=== PATIENT | male | born 1965 | race Caucasian/White ===

== ENCOUNTER 2023-02-26 22:17 | Emergency (ER) | payer OTHER ==
[2023-02-26] MEDS ORDERED: HYDROcodone/ACETAMINOPHEN 5 MG/325 MG TABLET PO ONE (22:30)
[2023-02-26] MEDS ORDERED: LIDOCAINE 1% INJ 20 ML VIAL ONE (22:32)
[2023-02-26] MEDS ORDERED: LIDOCAINE 1% INJ 20 ML VIAL INJ ONE (22:45)
--- NOTE | 2023-02-26 22:50 | ED Lower Extremity ---
General Chief Complaint: Lower Extremity Stated Complaint: R ANKLE/FOOT PAIN Nursing Triage Note: Pt slipped while stepping off of a boat and injured his right foot Source: patient Exam Limitations: no limitations History of Present Illness Date Seen by Provider: Feb 26, 2023 Time Seen by Provider: 22:23 Initial Comments 57-year-old male presents for right foot injury. He stepped off a boat onto a dock and hurt his toes. No other injury. All other systems reviewed and negative except documented per HPI. Voice recognition software was used to help create this chart Allergies and Home Medications Allergies Coded Allergies: No Known Drug Allergies (Unverified , 02/26/23) Patient Home Medication List Home Medication List Reviewed: Yes Review of Systems Constitutional: see HPI Past Xrqfgmj-Mkwise-Caryqk Hx Patient Social History Tobacco Use?: No Use of E-Cig and/or Vaping dev: No Substance use?: No Alcohol Use?: No Pt feels they are or have been: No Physical Exam Vital Signs Vital Signs - First Documented 02/26/23 22:22 Temp 36.6 Pulse 95 Resp 16 B/P (MAP) 139/88 (105) Pulse Ox 95 O2 Delivery Room Air Capillary Refill : Less Than 3 Seconds Height, Weight, BMI Height: '" Weight: lbs. oz. kg; BMI Method: General Appearance: WD/WN, no apparent distress Hips: bilateral hip non-tender, bilateral hip normal inspection, bilateral hip normal range of motion Legs: bilateral leg non-tender, bilateral leg normal inspection, bilateral leg normal range of motion Knees: bilateral knee non-tender, bilateral knee normal inspection, bilateral knee normal range of motion Ankles: bilateral ankle non-tender, bilateral ankle normal inspection, bilateral ankle normal range of motion Feet: right foot other (Obvious deformity third and fourth toe on the right foot. Neurovascular and sensory intact.) Neurologic/Tendon: normal sensation, normal motor functions, normal tendon functions Neurologic/Psychiatric: alert, oriented x 3 Skin: normal color, warm/dry Procedures/Interventions Splinting and Joint Reduction : Location: Right third and fourth toe Pre-Proc Neuro Vasc Exam: normal Post-Proc Neuro Vasc Exam: normal Pre-Procedure NV Exam: Yes post joint reduction film: joint reduced Ordered: Crutches Progress/Results/Core Measures Results/Orders My Orders Orders - MICHELLE SEPULVEDA DO Foot 3 View Right (02/26/23 22:23) Hydrocodone/Apap 5/325 Tablet (Hydrocod (02/26/23 22:30) Lidocaine 1% Inj 20 Ml (Xylocaine 1% Inj (02/26/23 22:45) Lidocaine 1% Inj 20 Ml (Xylocaine 1% Inj (02/26/23 22:32) Foot 3 View Right (02/26/23 22:39) Medications Given in ED Current Medications Medications Dose Ordered Sig/Fernando Route Start Time Stop Time Status Last Admin Dose Admin Acetaminophen/ Hydrocodone Bitart 1 ea ONCE ONCE PO 02/26/23 22:30 02/26/23 22:31 DC 02/26/23 22:27 1 EA Lidocaine HCl 20 ml ONCE ONCE INJ 02/26/23 22:45 02/26/23 22:46 DC 02/26/23 22:47 20 ML Vital Signs/I&O 02/26/23 22:22 Temp 36.6 Pulse 95 Resp 16 B/P (MAP) 139/88 (105) Pulse Ox 95 O2 Delivery Room Air Blood Pressure Mean: 105 Departure Communication (Admissions) Third and fourth toe reduced at bedside. Neurovascular sensory intact pre and post procedure. Placed in a [place] shoe and given crutches. Advised no w eightbearing until cleared by orthopedics. Discharged with hydrocodone t Impression Primary Impression: Dislocation of toe of right foot Qualified Codes: S93.104A - Unspecified dislocation of right toe(s), initial encounter Disposition: 01 HOME, SELF-CARE Condition: Stable Departure-Patient Inst. Referrals: FELI FINLEY MD Patient Instructions: Toe Injury (DC) Add. Discharge Instructions: Please call Dr. Finley's office to schedule follow-up appointment. Bear weight with crutches only until you are cleared by his office. Return to the emergency department for any severe concerns. Use pain medication as prescribed as needed. Do not drive or make important decisions as this may make you drowsy. All discharge instructions reviewed with patient and/or family. Voiced understanding. MICHELLE SEPULVEDA DO Feb 26, 2023 22:50
[2023-02-26 22:57] VITALS: BP 139/88
--- NOTE | 2023-02-27 08:56 | Diagnostic Imaging Report ---
Indication: Postreduction images right foot, follow-up 3 views the right foot show the previously demonstrated dislocation of the 3rd and 4th MTP joints have been reduced into normal alignment. There is no fracture seen. IMPRESSION: Successful interval reduction of the 3rd and 4th toes. Dictated by: Dictated on workstation # [id number]
--- NOTE | 2023-02-27 09:06 | Diagnostic Imaging Report ---
INDICATION: Injury with pain. FINDINGS: There are dislocations at the PIPs of the 3rd and 4th toes. No appreciable fracture. The MTPs and metatarsals appeared intact. No foreign body. IMPRESSION: Proximal interphalangeal dislocations of the 3rd and 4th rays. No visible fracture but post reduction radiographs recommended. Dictated by: Dictated on workstation # [id number]
== END 2023-02-26 23:02 | disposition home or self-care (01) ==
LOC: ER FS 22:21
DX: S93.304A Unspecified dislocation of right foot, initial encounter (principal); Z28.310 Unvaccinated for COVID-19; W18.43XA Slipping, tripping and stumbling without falling due to stepping from one level to another, initial encounter; Y92.814 Boat as the place of occurrence of the external cause
CPT/HCPCS: 73630